=== PATIENT | male | born 1985 | race Caucasian/White ===

== ENCOUNTER → 2017-01-31 | Outpatient (CLI) | payer OTHER ==
--- NOTE | ~2017-01-31 | ECHO ---
Transthoracic Echocardiography Report (TTE) Demographics Patient Name MAURICE ESTEVEZ Date of Study 01/31/2017 Patient Number [id number] Visit Number [id number] Date of 1985 Room Number Gender Male Number Age 31 year(s) Referring Jamel Gamez MD Dressmaker Or Tailor Violet Marquez Physician Dali Watkins RDCS, MD RVT Physician Interpreting Dali López Sales Forecast Analyst Physician MD Supervising Ordering Dali López MD/MLP Physician Nurse Stress Auto Driver Conclusions Contractility Score Summary Normal Left Ventricular contractility was noted. Summary Normal LV/RV size and systolic function. The estimated left ventricular ejection fraction is 55%. Diastolic assessment reveals normal relaxation. Mild prolapse of the anterior mitral valve leaflet(s). The aortic valve is bicuspid. There is mild to moderate eccentric aortic regurgitation by color Doppler. No evidence of . Procedure Type of Study TTE procedure:2D Echocardiogram, M-Mode, Doppler , Color Doppler. Procedure Date Date: 01/31/2017 Start: 08:26 AM Study Location: Echo Lab Technical Quality: Adequate visualization Indications:Bicuspid aortic valve. Appropriate Use Criteria: 9 Patient Status: Routine HR: 60 bpm BP: 141/85 mmHg M-Mode/2D Measurements LV Diastolic Dimension: 5.24 cm LV Systolic Dimension: 3.72 cm LV Septum Diastolic: 0.64 cm LV PW Diastolic: 0.94 cm AO Root Dimension: 3.1 cm Cardiac Output: 4.83 l/min LA Dimension: 2.6 cm LVOT: 2.3 cm LVOT VTI: 19.4 cm RV Base: 3.79 cm LV Stroke volume: 80.56 ml RV Length: 6.14 cm TAPSE: 1.56 cm TDI-S': 13 cm/s Doppler Measurements AV Peak Velocity: 1.31 m/s MV Peak E-Wave: 0.91 m/s AV Peak Gradient: 6.86 mmHg MV Peak A-Wave: 0.58 m/s AV Mean Gradient: 4 mmHg MV E/A Ratio: 1.56 LVOT Peak Velocity: 0.9 m/s MV P1/2t: 42 msec PV Peak Velocity: 0.71 m/s E' Septal Velocity: 0.11 m/s PV Peak Gradient: 2 mmHg E' Lateral Velocity: 0.15 m/s A' Septal Velocity: 0.06 m/s A' Lateral Velocity: 0.06 m/s Findings Left Ventricle Normal left ventricle size and function. Diastolic assessment reveals normal relaxation. Right Ventricle Normal right ventricle structure and function. Left Atrium Normal left atrial size. Right Atrium Normal right atrial size. IVC measures 1.59 cm with inspiratory collapse. Mitral Valve Mild prolapse of the anterior mitral valve leaflet(s). Aortic Valve The aortic valve appears to be bicuspid. There is mild to moderate eccentric aortic regurgitation by color Doppler Tricuspid Valve Normal tricuspid valve structure and function. Pulmonic Valve Normal pulmonic valve structure and function. Trivial pulmonic valve regurgitation by color Doppler. Pericardial Effusion No evidence of pericardial effusion. Miscellaneous Visualized portions of the aortic root and ascending aorta appear normal in size. Pleural Effusion No evidence of pleural effusion. Contractility Score LV regional wall motion:(0-Non visualized 1-Normal 2-Hypokinesis 3-Akinesis 4-Dyskinesis 5-Aneurysm) Signature dtt: SYLVIA HERNANDEZ dtd: 01/31/17 0826 Physician Self Edit
[2017-01-31 07:19] LABS: BASOPHIL % 0.4 %; EOSINOPHIL # 0.3 K/uL (0.0-0.5); EOSINOPHIL % 5.6 %; HEMATOCRIT 44.5 % (37.0-53.0); HEMOGLOBIN 15.4 g/dL (12.0-17.0); IMMATURE GRANULOCYTE % 0.2 %; LYMPHOCYTE # 1.8 K/uL (0.8-4.0); MCH 31.4 pg (27.0-34.0); MCHC 34.6 gm/dL (32.0-36.5); MCV 90.6 fl (83.0-98.0); MONOCYTE # 1.1 K/uL (0.0-1.0); MONOCYTE % 18.9 %; MPV 9.3 fl (9.4-12.4); NEUTROPHIL # (ANC) 2.5 K/uL (1.4-9.0); NEUTROPHIL % 42.9 %; NRBC % 0 /100WBC (0-0.00); PLATELET COUNT 227 K/uL (150-450); RBC 4.91 M/uL (4.00-6.00); RDW-CV 12.1 % (11.9-14.6); WBC 5.7 K/uL (4.0-11.0)
[2017-01-31 07:42] LABS: ALBUMIN 3.6 gm/dL (3.5-5.0); ALK PHOS 85 IU/L (33-138); ALT 20 IU/L (12-78); ANION GAP 9.2 (10.0-19.0); AST 14 IU/L (10-40); BLOOD UREA NITROGEN 14 mg/dL (6-24); CALCIUM 8.5 mg/dL (8.5-10.5); CHLORIDE 107 mMol/L (96-110); CO2 31 mMol/L (22-32); CREATININE 0.9 mg/dL (0.6-1.3); ESTIMATED GFR (MDRD EQUATION) > 60; POTASSIUM 4.2 mMol/L (3.7-5.1); SODIUM 143 mMol/L (135-145); TOTAL BILIRUBIN 0.9 mg/dL (0.0-1.5); TOTAL PROTEIN 7.1 g/dL (6.0-8.4)
== END | disposition disaster alternative care site (69) ==
LOC: GLAB 06:49
PROVIDERS: Internal Medicine Interventional Cardiology
DX: I72.9 Aneurysm of unspecified site (principal); Q25.1 Coarctation of aorta; I77.819 Aortic ectasia, unspecified site
CPT/HCPCS: Q9967

== ENCOUNTER → 2017-04-18 | Emergency (ER) | payer OTHER | END | disposition disaster alternative care site (69) | LOC: GAMB 23:48 | DX: Z04.8 Encounter for examination and observation for other specified reasons (principal); W22.8XXA Striking against or struck by other objects, initial encounter ==